=== PATIENT | male | born 1960 | race Caucasian/White ===

== ENCOUNTER → 2017-12-11 | Outpatient (CLI) | payer MEDICARE ==
--- NOTE | 2017-12-11 16:06 | XR ---
Cervical spine with flexion and extension 7 views of the cervical spine to include flexion and extension views. No comparisons Patient shows anterior cervical fusion and discectomy changes at C3-C7. Intervertebral spacing blocks are present. Oblique view show some foraminal encroachment at C3-4, C4-5, C6-7 on the right, left-si ded foramina not well evaluated due to obliquity of the exam. Bone mineralization is reduced which li den sensitivity. Lung apices are within normal limits. Loss of disc height present C2-3, there is ass ociated spondylosis. There is no evident listhesis on flexion and extension views. Lucency present at the tips of the screws at C4 and C5, C6 could be due to bone resorption. IMPRESSION: No acute abnormalities evident. Postop changes, degenerative disc disease. Additional fin dings above.
--- NOTE | 2017-12-11 16:07 | XR ---
Left shoulder HISTORY: Trauma and pain 3 views of the left shoulder Bone mineralization, joint spaces and alignment are maintained. IMPRESSION: No fracture or dislocation.
--- NOTE | 2017-12-11 16:08 | XR ---
Left wrist HISTORY: Trauma and pain 4 views of the left wrist Bone mineralization, joint spaces and alignment are maintained. IMPRESSION: No fracture or dislocation.
--- NOTE | 2017-12-11 16:09 | XR ---
Left elbow HISTORY: Trauma and pain 3 views of the left elbow Bone mineralization, joint spaces and alignment are maintained. Calcification present along the level of the extensor and flexor tendon origins. There is no joint effusion. Enthesophyte present at the i nsertion of the triceps tendon. IMPRESSION: No fracture or dislocation.
--- NOTE | 2017-12-11 16:11 | XR ---
Left RIBS HISTORY: Trauma and pain 4 views of the left RIBS Bone mineralization is maintained. No displaced rib fracture is evident. Left lung shows no pneumotho rax or pleural effusion, no evident lung contusion. Low platelet view of the lower ribs is somewhat l imited. Postop changes are noted incidentally in the lumbar and thoracic spine, surgical clips in the right upper quadrant. IMPRESSION: No displaced rib fracture evident, bone scan could be performed for increased sensitivity as indicated.
== END | disposition home or self-care (01) ==
LOC: RADXRMAIN 14:57
PROVIDERS: ATTEND Family Medicine Addiction Medicine
DX: M50.30 Other cervical disc degeneration, unspecified cervical region (principal); Z98.1 Arthrodesis status
CPT/HCPCS: 72052

== ENCOUNTER → 2019-06-30 | Outpatient (CLI) | payer MEDICARE ==
--- NOTE | 2019-07-01 09:30 | MR ---
EXAMINATION TYPE: MR brain wo con DATE OF EXAM: 06/30/2019 COMPARISON: None HISTORY: New headache accelerated blood pressure and hemianopsia CONTRAST: Performed utilizing 0 mL intravenous Gadavist gadolinium contrast. TECHNIQUE: Multiplanar, multiecho imaging on a 3.0 Stephanie magnet is performed through the brain. Stud y is performed within 24 hours of arrival to the hospital. The craniovertebral junction is normal. The pituitary is normal. Normal vascular flow voids are wit hin the visualized intracranial cerebral vasculature. Diffusion-weighted imaging is performed. No abnormal hyperintensity is present to suggest an acute i ntracranial infarct or acute ischemic change. This includes the right occipital lobe. Within the right occipital lobe there is hyperintensity within the deep white matter. This does have some milder extension into the cortex on T2 and inversion recovery weighted sequences. There is some mild local mass effect on the sulci. No midline shift however is evident. No appreciable lateral vent ricular compression is evident. This area on FLAIR images measures approximately 5.0 x 2.8 x 2.8 cm. While the findings suggest some ischemic change through the right occipital lobe, this is not new. Ex vacuo effect however is not evident. The pattern is somewhat atypical for the appearance for simple infarct. An underlying mass should be considered. Additional workup with contrast MRI is recommended. There are some additional subcortical white matter changes which are nonspecific but greater than exp ected for the patient age. Microvascular ischemic change, multiple sclerosis, migraine headaches coul d be considered. Vasculitis changes could be considered. Ventricles and sulci are appropriate for the patient age. IMPRESSIONS: 1. Abnormal signal within the right occipital lobe. This does not appear typical for infarct and unde rlying mass should be considered. Additional workup with contrast MRI is recommended. 2. Additional scattered punctate white matter changes more typical for chronic white matter ischemic changes in the subcortical white matter. Differential diagnosis is discussed above.
== END | disposition home or self-care (01) ==
LOC: RADMRIMAIN 11:00
PROVIDERS: ATTEND Family Medicine Addiction Medicine
DX: R90.89 Other abnormal findings on diagnostic imaging of central nervous system (principal); R51 Headache; R03.0 Elevated blood-pressure reading, without diagnosis of hypertension
CPT/HCPCS: 70551

== ENCOUNTER → 2019-07-28 | Outpatient (CLI) | payer MEDICARE ==
--- NOTE | 2019-07-28 13:25 | US ---
EXAMINATION TYPE: US carotid duplex BILAT DATE OF EXAM: 07/28/2019 COMPARISON: NONE CLINICAL HISTORY: Z86.73 Hx of stroke. History of stroke 1 month ago EXAM MEASUREMENTS: RIGHT: Peak Systolic Velocity (PSV) cm/sec ----- Right CCA: 130 ----- Right ICA: 120 ----- Right ECA: 158 ICA/CCA ratio: 0.92 RIGHT: End Diastole cm/sec ----- Right CCA: 37.1 ----- Right ICA: 60.2 ----- Right ECA: 35.3 LEFT: Peak Systolic Velocity (PSV) cm/sec ----- Left CCA: 133 ----- Left ICA: 115 ----- Left ECA: 157 ICA/CCA ratio: 0.86 LEFT: End Diastole cm/sec ----- Left CCA: 51.0 ----- Left ICA: 51.7 ----- Left ECA: 43.9 VERTEBRALS (direction of flow): Right Vertebral: Antegrade Left Vertebral: Antegrade Rhythm: Normal Grayscale, color Doppler, spectral Doppler imaging performed of the carotid arteries. Waveform analysis does not show significant stenosis of the proximal internal carotid arteries IMPRESSION: No hemodynamic significant stenosis of the proximal internal carotid arteries bilaterall y by Doppler criteria, an indirect measurement of carotid stenosis
== END | disposition home or self-care (01) ==
LOC: RADUSMAIN 09:04
PROVIDERS: ATTEND Psychiatry & Neurology Neurology
DX: Z09 Encounter for follow-up examination after completed treatment for conditions other than malignant neoplasm (principal); Z86.73 Personal history of transient ischemic attack (TIA), and cerebral infarction without residual deficits
CPT/HCPCS: 93880

== ENCOUNTER → 2019-08-12 | Outpatient (CLI) | payer MEDICARE ==
--- NOTE | 2019-08-15 11:47 | ECHOF ---
Referral Reason:Z86.73 HISTORY OF STROKE MEASUREMENTS -------- HEIGHT: 180.3 cm WEIGHT: 108.0 kg BP: IVSd: 1.0 cm (0.6 - 1.1) LVIDd: 3.9 cm (3.9 - 5.3) LVPWd: 1.2 cm (0.6 - 1.1) IVSs: 1.6 cm LVIDs: 2.1 cm LVPWs: 2.2 cm LAESV Index (A-L): 27.50 ml/m Ao Diam: 3.2 cm (2.0 - 3.7) AV Cusp: 1.9 cm (1.5 - 2.6) LA Diam: 3.8 cm (2.7 - 3.8) MV EXCURSION: 22.560 mm (> 18.000) MV EF SLOPE: 146 mm/s (70 - 150) EPSS: 0.6 cm MV E Kendrick: 0.91 m/s MV DecT: 190 ms MV A Kendrick: 0.91 m/s MV E/A Ratio: 1.00 RAP: 5.00 mmHg RVSP: 13.69 mmHg TAPSE: 30.85 mm FINDINGS -------- Sinus rhythm. This was a technically adequate study. The left ventricular size is normal. There is borderline concentric left ventricular hypertrophy. Overall left ventricular systolic function is normal with, an EF between 55 - 60 %. The diastolic filling pattern is normal for the age of the patient 10.52. The right ventricle is normal in size. The right ventricular wall thickness is normal measuring < 5 mm. The left atrial size is normal. Normal LA size by volume 22+/-6 ml/m2. The right atrial size is normal. Interatrial and interventricular septum intact. The aortic valve is trileaflet and appears structurally normal. The mitral valve is normal. There is trace mitral regurgitation. The tricuspid valve appears structurally normal. Trace tricuspid regurgitation present. Right ekta tricular systolic pressure is normal at < 35 mmHg. There is no pulmonic regurgitation present. The aortic root size is normal. Normal inferior vena cava with normal inspiratory collapse consistent with estimated right atrial pre ssure of 5 mmHg. The pulmonary veins were not recorded. There is no pericardial effusion. CONCLUSIONS -------- 1. Sinus rhythm. 2. This was a technically adequate study. 3. The left ventricular size is normal. 4. There is borderline concentric left ventricular hypertrophy. 5. Overall left ventricular systolic function is normal with, an EF between 55 - 60 %. 6. The diastolic filling pattern is normal for the age of the patient 10.52 7. The right ventricle is normal in size. 8. The right ventricular wall thickness is normal measuring < 5mm. 9. The left atrial size is normal. 10. Normal LA size by volume 22+/-6 ml/m2. 11. The right atrial size is normal. 12. Interatrial and interventricular septum intact. 13. The aortic valve is trileaflet and appears structurally normal. 14. The mitral valve is normal. 15. There is trace mitral regurgitation. 16. The tricuspid valve appears structurally normal. 17. Trace tricuspid regurgitation present. 18. Right ventricular systolic pressure is normal at < 35 mmHg. 19. There is no pulmonic regurgitation present. 20. The aortic root size is normal. 21. Normal inferior vena cava with normal inspiratory collapse consistent with estimated right atrial pressure of 5 mmHg. 22. The pulmonary veins were not recorded. 23. There is no pericardial effusion. RECRUITMENT ASSISTANT: Liane Heck RDCS
== END | disposition home or self-care (01) ==
LOC: RADECHMAIN 15:23
PROVIDERS: ATTEND Psychiatry & Neurology Neurology
DX: I51.7 Cardiomegaly (principal); Z86.73 Personal history of transient ischemic attack (TIA), and cerebral infarction without residual deficits
CPT/HCPCS: 93306

== ENCOUNTER → 2019-08-26 | Outpatient (CLI) | payer MEDICARE | END | disposition home or self-care (01) | LOC: LABWHC1 11:39 | PROVIDERS: ATTEND Psychiatry & Neurology Neurology | DX: Z09 Encounter for follow-up examination after completed treatment for conditions other than malignant neoplasm (principal); Z86.73 Personal history of transient ischemic attack (TIA), and cerebral infarction without residual deficits | CPT/HCPCS: 36415; 93005 ==

== ENCOUNTER → 2019-09-27 | Outpatient (CLI) | payer MEDICARE ==
--- NOTE | 2019-09-27 12:01 | MR ---
EXAMINATION TYPE: MR angio head wo con DATE OF EXAM: 09/27/2019 COMPARISON: MR brain 06/30/2019 HISTORY: Left temporal headache, stroke TECHNIQUE: Time of flight images focusing on the [place] were performed without contrast. Th ree-dimensional reconstructions performed on an alternate workstation FINDINGS: At the roof of the right maxillary sinus there is a 9 mm focus again noted increased signal , possibly polyp. The internal carotid arteries are patent. Vertebral arteries, basilar artery are patent. There is no evident embolus, dissection, or aneurysm. IMPRESSION: Normal [place] MRA. Sinus abnormality is indeterminate.
== END | disposition home or self-care (01) ==
LOC: RADMRIMAIN 09:48
PROVIDERS: ATTEND Psychiatry & Neurology Neurology
DX: R51 Headache (principal)
CPT/HCPCS: 70544

== ENCOUNTER → 2020-09-08 | Outpatient (CLI) | payer MEDICARE ==
--- NOTE | 2020-09-09 17:13 | MR ---
EXAMINATION TYPE: MR angio head wo/neck wo/w con DATE OF EXAM: 09/08/2020 COMPARISON: 09/27/2019 HISTORY: History TIA, ROSE CONTRAST: None TECHNIQUE: Multiplanar multiecho imaging on a 3.0 Stephanie magnet is performed through the [place]. 3-D [id number] imaging is performed. Source images are reviewed on the computer in the axi al plane. Reconstructed images rotating on the computer are reviewed. FINDINGS: Motion artifact limits carotid artery evaluation. Slab artifact is evident. No flow gaps ar e evident. Common carotid arteries bifurcate internal and external carotid arteries without significa nt stenosis. Vertebral arteries are codominant. The internal carotid arteries bifurcate normally into A1 and M1 segments. The A2 segments are normal . Middle cerebral artery branches are normal. Anterior communicating artery is patent. The right posterior communicating artery is absent. The left posterior communicating artery is absent. Vertebrobasilar arteries within the [id number] are normal. Posterior cerebral vasculature is norm al. No suspicious aneurysm or aneurysmal dilatation is evident. No obstructions are identified. No significant flow-limiting stenosis is evident. IMPRESSIONS: 1. Normal MRA [place] 2. Normal carotid artery bifurcations without stenosis.
== END | disposition home or self-care (01) ==
LOC: RADMRIMAIN 14:20
PROVIDERS: ATTEND Psychiatry & Neurology Neurology
DX: R51.9 Headache, unspecified (principal); Z86.73 Personal history of transient ischemic attack (TIA), and cerebral infarction without residual deficits
CPT/HCPCS: 70544; 70549; A9585

== ENCOUNTER → 2023-12-08 | Outpatient (CLI) | payer MEDICARE ==
--- NOTE | 2023-12-08 15:07 | XR ---
EXAMINATION TYPE: XR ankle complete 3 views RT, XR foot complete 3 views RT DATE OF EXAM: 12/08/2023 COMPARISON: NONE HISTORY: 63-year-old male chronic pain posterior foot and ankle. M79.671, right foot pain, M25.571 r ight ankle pain FINDINGS: Ankle: Ankle mortise is congruent. Preservation of the distal tibia-fibula overlap. There is fragmentation a t the posterior calcaneal tuberosity corresponding to the Achilles insertion. Marked thickening and o verlying soft tissue thickening at the Achilles tendon insertion up to 1.6 cm AP. Subtalar joint is a ligned. Ankle mortise congruent. No acute fracture otherwise seen. Talar dome intact. Foot: Large os peroneum. Small os supra naviculare. No acute fracture, subluxation, dislocation. IMPRESSION: 1. Ankle: There may be underlying severe insertional Achilles tendinopathy. If concern for underlying tear, MRI can be considered. 2. Foot: No acute osseous abnormality seen.
== END | disposition home or self-care (01) ==
LOC: RADXRMAIN 10:33
PROVIDERS: ATTEND Podiatrist Foot & Ankle Surgery
DX: M79.671 Pain in right foot (principal); M25.571 Pain in right ankle and joints of right foot

== ENCOUNTER → 2024-07-15 | Outpatient (CLI) | payer MEDICARE ==
--- NOTE | 2024-07-15 13:24 | XR ---
EXAMINATION TYPE: XR knee limited LT DATE OF EXAM: 07/15/2024 COMPARISON: NONE HISTORY: Pain TECHNIQUE: Two views are submitted. FINDINGS: Mild tricompartment osteoarthritis with marginal spurring. No erosive changes. Mild generalized demin eralization.. Osseous structures are intact. No acute fracture seen. IMPRESSION: 1. No acute fracture or dislocation.
== END | disposition home or self-care (01) ==
LOC: RADXRMAIN 13:05
PROVIDERS: ATTEND Family Medicine Addiction Medicine
DX: M17.11 Unilateral primary osteoarthritis, right knee (principal)

== ENCOUNTER → 2024-09-27 | Outpatient (CLI) | payer MEDICARE ==
--- NOTE | 2024-09-27 23:51 | MR ---
EXAMINATION TYPE: MR shoulder RT wo con DATE OF EXAM: 09/27/2024 8:46 AM COMPARISON: None. CLINICAL INDICATION: Male, 64 years old with history of M25.511 PAIN IN RIGHT SHOULDER, Right shoulde r pain, decreased ROM x 6 mos. No hx of trauma. TECHNIQUE: Multiplanar, multisequence imaging of the right shoulder is performed without contrast. FINDINGS: Rotator Cuff: Intact infraspinatus tendon. Increased signal in the supraspinatus tendon with some ellyn rounding fluid distally. Heterogeneous subscapularis tendon. Rotator cuff muscle bulk is preserved. Acromioclavicular Joint: No significant narrowing. [id number] spurring. Severe capsular hypertr ophy. Loss of underlying fat plane noted. Glenohumeral Joint: Small sized joint effusion. No significant spurring. Narrowing is present. Labrum: The labrum appears grossly intact given limitation of non-arthrogram study. Biceps Tendon: The long head of biceps is in normal location within bicipital groove. Some increased signal is present. Bone marrow signal: Tiny subchondral cystic change involving the lateral humeral head. Other: No additional significant abnormality is appreciated. IMPRESSION: 1. Capsular hypertrophy at the acromial navicular joint with suggestion of underlying impingement, co rrelate clinically. 2. Some tendinosis of the subscapularis tendon. More prominent tendinosis of the supraspinatus tendon . 3. Tendinosis/partial tearing of the long head of biceps tendon. [facility], Workstation: [id number], 09/27/2024 11:49 PM
== END | disposition home or self-care (01) ==
LOC: RADMRIMAIN 07:59
PROVIDERS: ATTEND Family Medicine Addiction Medicine
DX: M25.611 Stiffness of right shoulder, not elsewhere classified (principal); M25.811 Other specified joint disorders, right shoulder; M67.813 Other specified disorders of tendon, right shoulder; M25.411 Effusion, right shoulder